=== PATIENT | male | born 1995 | race Caucasian/White ===

== ENCOUNTER 2016-11-02 12:19 | Emergency (ER) | payer OTHER ==
[2016-11-02 12:30] VITALS: RESP 16; TEMP 98.6
--- NOTE | 2016-11-02 13:19 | EDPHY ---
HPI/HX/ROS/PE/MDM Narrative: Chief complaint: Left chest pain HPI: 21-year-old male sustained a left chest injury when he had a snowboarding accident on the of last month. Patient states he ran into a tree on his left side of his chest. Did not seek medical attention at that time. He has had persistent left lower chest pain since then which has been improving. He is now presenting complaining of worsening pain on the left side of his sternum. Does hurt with deep inspiration. She has not had any cough or shortness of breath. No fevers or chills. No abdominal pain. No nausea or vomiting. Denies other patient history. Has been taking some ibuprofen at home with some relief. ROS: 10 point Review of Systems is negative except as noted in the HPI. Physical exam: Gen: Awake, Alert, No Distress HEENT: Nose: no rhinorrhea Eyes: PERRLA, EOMI Mouth: Moist mucosa Neck: Supple, no JVD Chest: Significant left parasternal tenderness to palpation reproducing presenting complaint, lungs clear to auscultation Heart: S1, S2 normal, no murmur Abd: Soft, non-tender, no guarding Back: no CVA tenderness, no midline tenderness Ext: no edema, non-tender Skin: no rash Neuro: CN II-XII intact, Sensation grossly intact, Strength 5/5 in bilateral upper and lower extremities ED Course: Chest x-ray: Negative per my interpretation 21-year-old male with left parasternal chest wall pain status post snowboarding accident 10 days ago. Chest x-ray shows no pneumothorax, obvious fracture or consolidation. His lung exam is otherwise unremarkable he has reproducible tenderness. He is oxygenating well. Will discharge with continued nonsteroidals and referred to follow up with primary care physician for any concerns. Discussed with Dr. Hernandez, radiology. There is evidence of possible sternal fracture. As the patient is 10 days post injury with no evidence of mediastinal injury and is hemodynamically normal this can be followed as an outpatient. General Time Seen by Provider: 11/02/16 13:04 Initial Vital Signs: Initial Vital Signs Temperature (C) 37 C 11/02/16 12:20 Heart Rate 73 11/02/16 12:20 Respiratory Rate 16 11/02/16 12:20 Blood Pressure 120/68 11/02/16 12:20 O2 Sat (%) 98 11/02/16 12:20 O2 Delivery Mode Room Air Allergies/Adverse Reactions: No Known Allergies Allergy (Unverified 11/02/16 12:30) Home Medications: Medication Instructions Recorded NK [No Known Home Meds] 11/02/16 Departure - Departure Disposition: Home, Routine, Self-Care Clinical Impression: Chest wall pain, Fracture of sternum Condition: Good Instructions: Chest Wall Pain (ED) Additional Instructions: Continue taking ibuprofen and acetaminophen as needed for pain. Follow up with [facility] in about a week if still having symptoms. Referrals: CRISTIAN PEREZ ,. [Primary Care Provider] - As per Instructions
[2016-11-02 14:22] VITALS: BP 117/71; PULSE 70; O2SAT 95
--- NOTE | 2016-11-02 15:04 | DX ---
PA and Lateral Chest X-ray 1306 hours History: Snowboard injury 10 days ago. Hit a tree. Findings: Heart size and pulmonary vasculature are normal. The lungs are clear without infiltrates or effusions. There is no pneumothorax. On the lateral view, there is suspicion of a nondisplaced midst ernum fracture. Impression: 1. No active cardio pulmonary disease seen. 2. Nondisplaced midsternal fracture suspected. These findings were discussed by telephone with Dr. Varghese Hammond at 1500 hrs.
== END 2016-11-02 14:21 | disposition home or self-care (01) ==
DX: S22.20XA Unspecified fracture of sternum, initial encounter for closed fracture (principal); V00.318A Other snowboard accident, initial encounter

== ENCOUNTER → 2017-01-28 | Outpatient (CLI) | payer BC, OTHER | LOC: FIMAGING 16:01 | PROVIDERS: ATTEND Orthopaedic Surgery Hand Surgery | DX: S62.304A Unspecified fracture of fourth metacarpal bone, right hand, initial encounter for closed fracture (principal); S62.310A Displaced fracture of base of second metacarpal bone, right hand, initial encounter for closed fracture ==